=== PATIENT | female | born 1970 | race Two or more races ===

== ENCOUNTER 2023-11-21 16:33 | Emergency (ER) | payer MEDICAID, OTHER ==
[~2023-11-21] VITALS: Ht 170.2 cm; Wt 63.0 kg
[2023-11-21] MEDS: TETANUS-DIPTH-ACEL PERTUSSIS 0.5ML SYR Tdap IM ONE (18:45)
[2023-11-21] MEDS ORDERED: BAC09TP TOP (19:56)
[2023-11-21] MEDS: LIDOCAINE 1% HCL (LOCAL ANESTH.) INJ 20ML MDV ONE (20:57)
[2023-11-21 21:45] VITALS: TEMP 97.6
[2023-11-21] MEDS: MORPHINE SULFATE 4 MG/ML SYR/VIAL IM ONE (22:11)
[2023-11-21] MEDS: KETOROLAC TROMETH 60MG/2ML VIAL IM ONE (22:13)
[2023-11-21 22:45] VITALS: BP 112/76; PULSE 83; RESP 18; O2SAT 96
== END 2023-11-21 22:49 | disposition home or self-care (01) ==
LOC: ER 16:33
DX: S05.42XA Penetrating wound of orbit with or without foreign body, left eye, initial encounter (principal); W18.09XA Striking against other object with subsequent fall, initial encounter; Y93.01 Activity, walking, marching and hiking; Y92.89 Other specified places as the place of occurrence of the external cause; Y99.8 Other external cause status
CPT/HCPCS: 12011; 70486; 90471; 90715; 96372; 99285; J1885; J2270; J2001